=== PATIENT | female | born 1940 | race Caucasian/White ===

== ENCOUNTER 2020-05-01 23:08 | Inpatient (IN) | payer OTHER ==
[~2020-05-01] VITALS: Ht 167.6 cm; Wt 84.4 kg
[~2020-05-01 23:08] MED LIST: TRIA1CAP53 PO; [UNRECOGNIZED DRUG - CODE] PO
[2020-05-01 23:14] VITALS: BP_SYST 137
[2020-05-02] VITALS (7 sets, daily range): BP systolic 148–165
[2020-05-02 00:19] LABS: BASOPHILS # (AUTO) 0.1 K/uL (0.0-0.2); BASOPHILS % (AUTO) 0.7 % (0.0-2.0); EOSINOPHILS # (AUTO) 0.1 K/uL (0.0-0.4); EOSINOPHILS % (AUTO) 1.3 % (0.0-4.0); HEMATOCRIT 38.7 % (36-48); HEMOGLOBIN 12.7 g/dL (12.0-16.0); LYMPHOCYTES # (AUTO) 1.5 K/uL (1.0-5.5); MEAN CORPUSCULAR HEMOGLOBIN 31 pg (27-31); MEAN CORPUSCULAR HGB CONC 33 % (32-36); MEAN CORPUSCULAR VOLUME 93 fL (79.0-98.0); MONOCYTES # (AUTO) 0.7 K/uL (0.0-1.0); MONOCYTES % (AUTO) 7.6 % (1.7-9.3); NEUTROPHILS # (AUTO) 6.9 K/uL (1.8-7.7); NEUTROPHILS % (AUTO) 74.4 % (40.0-70.0); PLATELET COUNT (AUTO) 296 K/uL (130-430); RED BLOOD CELL COUNT(AUTO) 4.15 MIL/uL (4.2-6.2); RED CELL DISTRIBUTION WIDTH 14.1 % (9.0-15.0); WHITE BLOOD COUNT (AUTO) 9.2 K/uL (4.8-10.8)
[2020-05-02 00:32] LABS: ANION GAP 6 (5-15); CALCIUM 8.8 mg/dL (8.4-11.0); CHLORIDE 105 mmol/L (98-107); CREATININE 1.43 mg/dL (0.55-1.30); GLUCOSE 161 mg/dL (70-99); POTASSIUM 3.7 mmol/L (3.5-5.1); SODIUM SERUM 143 mmol/L (136-145); UREA NITROGEN, BLOOD 22 mg/dL (8-21)
[2020-05-02 00:39] LABS: BILIRUBIN,URINE NEGATIVE (NEGATIVE); BLOOD, URINE NEGATIVE (NEGATIVE); CLARITY/URINE CLEAR (CLEAR); COLOR,URINE YELLOW (YELLOW); GLUCOSE,URINE NEGATIVE (NEGATIVE); KETONES,URINE NEGATIVE (NEGATIVE); LEUKOCYTE ESTERASE ,URINE 2+ (NEGATIVE); NITRITE, URINE NEGATIVE (NEGATIVE); PROTEIN URINE TRACE (NEGATIVE); UROBILINOGEN,URINE 0.2 (0.2-1.0)
[2020-05-02 00:46] LABS: ALANINE AMINOTRANSFERASE 27 U/L (12-78); ALBUMIN 3.3 g/dL (3.4-4.8); ASPARTATE AMINOTRANSFERASE 22 U/L (10-37); TOTAL BILIRUBIN 0.5 mg/dL (0.0-1.0)
[2020-05-02 01:08] LABS: BACTERIA,URINE FEW /HPF (None Seen); RBC,URINE 0-3 /HPF (0-3)
[2020-05-02 01:09] LABS: HYALINE CASTS, URINE 0-10 /LPF (None Seen)
[2020-05-02] MEDS ORDERED: NACL 0.9% 1,000 ML IV SCH (02:15)
[2020-05-02] MEDS: NACL 0.9% 1,000 ML IV SCH ×2 (06:45→19:11)
[2020-05-02] MEDS ORDERED: LORazepam 2 MG/ML VIAL IVP PRN (06:45)
[2020-05-02] MEDS ORDERED: MORPHINE 2 MG/ML INJ. SYRINGE IVP PRN ×2 (06:45)
[2020-05-02] MEDS ORDERED: ONDANSETRON HCL 4 MG/2 ML VIAL IVP PRN (06:45)
[2020-05-02] MEDS ORDERED: POTASSIUM CHLORIDE 20 MEQ TAB.PRT.SR PO PRN (06:45)
[2020-05-02] MEDS ORDERED: ZOLPIDEM TARTRATE 5 MG TABLET PO PRN (06:45)
[2020-05-02] MEDS ORDERED: MUPIROCIN 2% TOPICAL OINTMENT 22 GM NS PRN (06:45)
[2020-05-02] MEDS ORDERED: DOCUSATE SODIUM 100 MG CAPSULE PO PRN (06:45)
[2020-05-02] MEDS ORDERED: TRIAMTERENE/HYDROCHLOROTHIAZID 1 CAP CAPSULE (DYAZIDE37.5/25) PO SCH (06:45)
[2020-05-02] MEDS ORDERED: ACETAMINOPHEN 325 MG TABLET PO PRN (06:45)
[2020-05-02] MEDS ORDERED: MAGNESIUM SULFATE 50 ML IV PRN (06:45)
[2020-05-02] MEDS: cefTRIAXone 1 GM in D5W 50 ML IV SCH (08:43)
[2020-05-02 08:52] LABS: ANION GAP 5 (5-15); CALCIUM 9.1 mg/dL (8.4-11.0); CHLORIDE 106 mmol/L (98-107); CREATININE 1.32 mg/dL (0.55-1.30); GLUCOSE 112 mg/dL (70-99); POTASSIUM 4.1 mmol/L (3.5-5.1); SODIUM SERUM 141 mmol/L (136-145); UREA NITROGEN, BLOOD 24 mg/dL (8-21)
[2020-05-02] MEDS: amLODIPine BESYLATE 10 MG TABLET PO SCH (10:08)
[2020-05-02] MEDS: HEPARIN SODIUM,PORCINE 5000 UNITS/ML VIAL SUBCUT SCH ×2 (10:08→21:14)
[2020-05-02] MEDS: PANTOPRAZOLE SODIUM 40 MG TAB PO SCH (10:09)
[2020-05-03 01:38] VITALS: BP_SYST 147
[2020-05-03 08:00] VITALS: BP_SYST 163
[2020-05-03] MEDS ORDERED: REGADENOSON 0.4 MG/5 ML SYRINGE IVP ONE (09:00)
[2020-05-03] MEDS: amLODIPine BESYLATE 10 MG TABLET PO SCH (09:24)
[2020-05-03] MEDS: PANTOPRAZOLE SODIUM 40 MG TAB PO SCH (09:26)
[2020-05-03] MEDS: HEPARIN SODIUM,PORCINE 5000 UNITS/ML VIAL SUBCUT SCH (09:26)
[2020-05-03] MEDS: cefTRIAXone 1 GM in D5W 50 ML IV SCH (09:26)
[2020-05-03] MEDS: NACL 0.9% 1,000 ML IV SCH (09:27)
[2020-05-03] MEDS ORDERED: PRO40 PO (11:04)
[2020-05-03 12:17] VITALS: BP_SYST 164
[2020-05-03 13:38] LABS: BASOPHILS # (AUTO) 0.1 K/uL (0.0-0.2); BASOPHILS % (AUTO) 0.8 % (0.0-2.0); EOSINOPHILS # (AUTO) 0.1 K/uL (0.0-0.4); EOSINOPHILS % (AUTO) 0.9 % (0.0-4.0); HEMATOCRIT 40.4 % (36-48); HEMOGLOBIN 13.1 g/dL (12.0-16.0); LYMPHOCYTES # (AUTO) 1.8 K/uL (1.0-5.5); LYMPHOCYTES % (AUTO) 14.9 % (20.5-51.5); MEAN CORPUSCULAR HEMOGLOBIN 30 pg (27-31); MEAN CORPUSCULAR HGB CONC 32 % (32-36); MEAN CORPUSCULAR VOLUME 94 fL (79.0-98.0); MONOCYTES # (AUTO) 0.8 K/uL (0.0-1.0); MONOCYTES % (AUTO) 6.9 % (1.7-9.3); NEUTROPHILS # (AUTO) 9.1 K/uL (1.8-7.7); NEUTROPHILS % (AUTO) 76.5 % (40.0-70.0); PLATELET COUNT (AUTO) 258 K/uL (130-430); RED BLOOD CELL COUNT(AUTO) 4.32 MIL/uL (4.2-6.2); RED CELL DISTRIBUTION WIDTH 14.3 % (9.0-15.0); WHITE BLOOD COUNT (AUTO) 11.9 K/uL (4.8-10.8)
[2020-05-03 13:39] LABS: ANION GAP 6 (5-15); CALCIUM 8.2 mg/dL (8.4-11.0); CHLORIDE 107 mmol/L (98-107); CREATININE 0.99 mg/dL (0.55-1.30); GLUCOSE 105 mg/dL (70-99); POTASSIUM 3.8 mmol/L (3.5-5.1); SODIUM SERUM 143 mmol/L (136-145); UREA NITROGEN, BLOOD 22 mg/dL (8-21)
[2020-05-03 16:02] VITALS: BP_SYST 145
== END 2020-05-03 16:30 | disposition home or self-care (01) | DRG 391 ==
LOC: SED 23:08 → STU 05-02 02:15
PROVIDERS: ADMIT General Practice; ATTEND General Practice
DX: K21.9 Gastro-esophageal reflux disease without esophagitis (principal); N17.0 Acute kidney failure with tubular necrosis; N39.0 Urinary tract infection, site not specified; I10 Essential (primary) hypertension; E66.9 Obesity, unspecified; I44.7 Left bundle-branch block, unspecified; Z68.30 Body mass index [BMI] 30.0-30.9, adult; Z79.899 Other long term (current) drug therapy
CPT/HCPCS: 36415; 71045; 80048; 80053; 81000-TC; 83036; 83735-TC; 83880; 84484; 85025; 87086; 93005; 93017; 93306; 99285; A9500; G0378; J0696; J1644; J2785; J7030; J7060

== ENCOUNTER 2020-05-18 07:09 | Emergency (ER) | payer OTHER ==
[~2020-05-18] VITALS: Ht 167.6 cm; Wt 92.5 kg
[~2020-05-18 07:09] MED LIST changes: +PRO40 PO
[2020-05-18 07:10] VITALS: BP_SYST 173
--- NOTE | 2020-05-18 07:10 | NUR ---
BROUGHT BACK TO BED #1 AND TRIAGED. REPORT GIVEN TO ROSALIA
--- NOTE | 2020-05-18 07:25 | NUR ---
Patient presented to ER C/O left hand pain. Patient ambulatory to ER, afebrile, left thumb slight swelling, left hand pain 6/10, denies N/V/D. Patient states left hand pain started last night,denies trauma or injury. Slight swelling to left thumb area & limited ROM due to pain.
--- NOTE | 2020-05-18 07:45 | NUR ---
ER Dr. Contreras at bedside examining patient.
--- NOTE | 2020-05-18 08:03 | NUR ---
XRAYS BEING DONE AT BEDSIDE. PT TOLERATING IT WELL.
[2020-05-18] MEDS ORDERED: ACETAMINOPHEN 325 MG TABLET PO ONE (09:15)
--- NOTE | 2020-05-18 09:40 | NUR ---
Splint placed to left hand as ordered.
--- NOTE | 2020-05-18 09:55 | NUR ---
Patient given written and verbal discharge instructions and verbalizes understanding. ER MD discussed with patient the results and treatment provided. Patient in stable condition. ID arm band removed. Rx of Tylenol given. Patient educated on pain management and to follow up with PMD. Pain Scale 2. Opportunity for questions provided and answered. Medication side effect fact sheet provided.
[2020-05-18 09:56] VITALS: BP_SYST 173
== END 2020-05-18 09:55 | disposition home or self-care (01) ==
LOC: SED 07:09
DX: M79.642 Pain in left hand (principal)
CPT/HCPCS: 99283

== ENCOUNTER 2022-04-19 12:26 | Emergency (ER) | payer OTHER ==
[~2022-04-19] VITALS: Ht 167.6 cm; Wt 98.0 kg
[2022-04-19 12:33] VITALS: BP_SYST 150
--- NOTE | 2022-04-19 12:46 | NUR ---
Patient to ER bed 6 to gown for evaluation. Side rails up. Report given to Mone.
--- NOTE | 2022-04-19 12:52 | NUR ---
ER at bedside examining patient.
--- NOTE | 2022-04-19 13:16 | NUR ---
81YO G BIB C/O BRIGHT RED BLOOD IN STOOL SINCE YESTERDAY. DENIES PAIN WHEN DEFECATING, DENIES URINARY PROBLEMS. DENIES ABDOMINAL PAIN. PT ADMITS TO BEING CONSTIPATED. IN ED, VSS. PT NOT IN DISTRESS. CLEAR BREATH SOUNDS. ABDOMEN SOFT, NONTENDER. ERMD MADE AWARE OF PT STATUS. PMH: HTN
[2022-04-19 13:21] LABS: BASOPHILS # (AUTO) 0.1 K/uL (0.0-0.2); BASOPHILS % (AUTO) 0.9 % (0.0-2.0); EOSINOPHILS % (AUTO) 0.4 % (0.0-4.0); HEMATOCRIT 40.3 % (36-48); HEMOGLOBIN 13.4 g/dL (12.0-16.0); LYMPHOCYTES # (AUTO) 1.2 K/uL (1.0-5.5); LYMPHOCYTES % (AUTO) 13.9 % (20.5-51.5); MEAN CORPUSCULAR HEMOGLOBIN 30 pg (27-31); MEAN CORPUSCULAR HGB CONC 33 % (32-36); MEAN CORPUSCULAR VOLUME 90 fL (79.0-98.0); MONOCYTES # (AUTO) 0.4 K/uL (0.0-1.0); MONOCYTES % (AUTO) 4.9 % (1.7-9.3); NEUTROPHILS # (AUTO) 7.1 K/uL (1.8-7.7); NEUTROPHILS % (AUTO) 79.9 % (40.0-70.0); PLATELET COUNT (AUTO) 251 K/uL (130-430); RED BLOOD CELL COUNT(AUTO) 4.49 MIL/uL (4.2-6.2); RED CELL DISTRIBUTION WIDTH 14.8 % (9.0-15.0); WHITE BLOOD COUNT (AUTO) 8.9 K/uL (4.8-10.8)
[2022-04-19 13:22] LABS: ANION GAP 6 (5-15); CALCIUM 8.9 mg/dL (8.4-11.0); CHLORIDE 102 mmol/L (98-107); CREATININE 1.12 mg/dL (0.55-1.30); GLUCOSE 105 mg/dL (70-99); POTASSIUM 3.8 mmol/L (3.5-5.1); SODIUM SERUM 138 mmol/L (136-145); UREA NITROGEN, BLOOD 21 mg/dL (8-21)
[2022-04-19 13:29] LABS: ALANINE AMINOTRANSFERASE 16 U/L (12-78); ALBUMIN 3.3 g/dL (3.4-4.8); AMYLASE 77 U/L (0-100); ASPARTATE AMINOTRANSFERASE 17 U/L (10-37); LIPASE 81 U/L (73-393); TOTAL BILIRUBIN 0.8 mg/dL (0.0-1.0)
[2022-04-19 14:23] VITALS: BP_SYST 150
--- NOTE | 2022-04-19 14:24 | NUR ---
Patient given written and verbal discharge instructions and verbalizes understanding. ER MD discussed with patient the results and treatment provided. Patient in stable condition. ID arm band removed. nO Rx given. Patient educated on pain management and to follow up with PMD. Pain Scale 0. Opportunity for questions provided and answered. Medication side effect fact sheet provided.
== END 2022-04-19 14:23 | disposition home or self-care (01) ==
LOC: SED 12:26
DX: K62.5 Hemorrhage of anus and rectum (principal); Z79.899 Other long term (current) drug therapy
CPT/HCPCS: 36415; 76376; 80053; 81002; 82150; 83605; 83690; 85025; 85610-TC; 85730-TC; 86886; 86900; 86901; 99284; 99285

== ENCOUNTER 2022-05-16 20:53 | Emergency (ER) | payer OTHER ==
[~2022-05-16] VITALS: Ht 167.6 cm; Wt 93.9 kg
--- NOTE | 2022-05-16 21:00 | NUR ---
Pt to ER w/ c/o difficulty swallowing and dyspnea. Pt denies new medications. Respirations unlabored with mild tachypnea. Ambulates with strong steady gait. Normal skin color for ethnicity. O2 saturation at 93% on Room air.
[2022-05-16 21:02] VITALS: BP_SYST 145
--- NOTE | 2022-05-16 22:08 | NUR ---
Patient to ER bed 7 to gown for evaluation. Side rails up. Report given to Gavin WAGONER(reg).
--- NOTE | 2022-05-16 23:19 | NUR ---
pt C/O difficulty swallowing Respitory system assessed Throat clear with no signs of obstruction Pt DC per MD DC instructions and medications given Pt verbalized understandings AOX4 VSS NAD at this time Pt exited ED in stable gait
[2022-05-16 23:21] VITALS: BP_SYST 130
== END 2022-05-16 23:18 | disposition home or self-care (01) ==
LOC: SED 20:53
DX: R13.10 Dysphagia, unspecified (principal); E78.00 Pure hypercholesterolemia, unspecified; I10 Essential (primary) hypertension; Z79.899 Other long term (current) drug therapy
CPT/HCPCS: 99281

== ENCOUNTER 2022-06-02 09:37 | Outpatient (CLI) | payer OTHER ==
[2022-06-02] MEDS ORDERED: BARIUM SULFATE 135 ML SUSP.RECON (E-Z-HD) PO ONE (10:32)
== END 2022-06-02 20:21 | disposition home or self-care (01) ==
LOC: SRD 09:37
PROVIDERS: ATTEND Otolaryngology
DX: K44.9 Diaphragmatic hernia without obstruction or gangrene (principal); R13.10 Dysphagia, unspecified
CPT/HCPCS: 74220-TC

== ENCOUNTER 2022-08-22 17:21 | Emergency (ER) | payer OTHER ==
[~2022-08-22] VITALS: Ht 167.6 cm; Wt 93.4 kg
[2022-08-22 17:57] VITALS: BP_SYST 129
--- NOTE | 2022-08-22 21:30 | NUR ---
PT SEEN AND EXAMINE BY DR. VAN
--- NOTE | 2022-08-22 21:51 | NUR ---
Patient given written and verbal discharge instructions and verbalizes understanding. ER MD discussed with patient the results and treatment provided. Patient in stable condition. ID arm band removed. NO Rx of given. Patient educated on pain management and to follow up with PMD. Pain Scale 3/10. Opportunity for questions provided and answered. Medication side effect fact sheet provided.
[2022-08-22 21:53] VITALS: BP_SYST 126
== END 2022-08-22 21:53 | disposition home or self-care (01) ==
LOC: SED 17:21
DX: S63.501A Unspecified sprain of right wrist, initial encounter (principal); I10 Essential (primary) hypertension; Z88.5 Allergy status to narcotic agent; Z79.899 Other long term (current) drug therapy; X50.9XXA Other and unspecified overexertion or strenuous movements or postures, initial encounter; Y93.89 Activity, other specified; Y92.89 Other specified places as the place of occurrence of the external cause; Y99.8 Other external cause status
CPT/HCPCS: 99283

== ENCOUNTER 2022-12-08 10:37 | Inpatient (IN) | payer OTHER ==
[~2022-12-08] VITALS: Ht 160 cm; Wt 93.5 kg
[2022-12-08 10:43] VITALS: BP_SYST 154
[2022-12-08] MEDS ORDERED: ALBUTEROL SULFATE 0.083% 2.5 MG/3 ML VIAL.NEB INH ONE ×2 (10:53→11:00)
[2022-12-08] MEDS ORDERED: IPRATROPIUM BROM 0.5 MG/2.5 ML VIAL.NEB (ATROVENT) INH ONE ×2 (10:53→11:00)
[2022-12-08] MEDS ORDERED: VERA120C2 PO (12:13)
[2022-12-08] MEDS ORDERED: FAMO40TA7 PO (12:13)
[2022-12-08] MEDS ORDERED: LOSA25TA3 PO (12:13)
[2022-12-08] MEDS ORDERED: SIMV40TA2 PO (12:13)
[2022-12-08 12:16] LABS: BASOPHILS % (AUTO) 0.3 % (0.0-2.0); EOSINOPHILS % (AUTO) 0.3 % (0.0-4.0); HEMATOCRIT 39.9 % (36-48); HEMOGLOBIN 13.3 g/dL (12.0-16.0); LYMPHOCYTES # (AUTO) 1.7 K/uL (1.0-5.5); LYMPHOCYTES % (AUTO) 21.5 % (20.5-51.5); MEAN CORPUSCULAR HEMOGLOBIN 31 pg (27-31); MEAN CORPUSCULAR HGB CONC 33 % (32-36); MEAN CORPUSCULAR VOLUME 92 fL (79.0-98.0); MONOCYTES % (AUTO) 13.1 % (1.7-9.3); NEUTROPHILS # (AUTO) 5.1 K/uL (1.8-7.7); NEUTROPHILS % (AUTO) 64.8 % (40.0-70.0); PLATELET COUNT (AUTO) 209 K/uL (130-430); RED BLOOD CELL COUNT(AUTO) 4.35 MIL/uL (4.2-6.2); RED CELL DISTRIBUTION WIDTH 14.5 % (9.0-15.0); WHITE BLOOD COUNT (AUTO) 7.9 K/uL (4.8-10.8)
[2022-12-08 12:21] LABS: ANION GAP 4 (5-15); CALCIUM 9.1 mg/dL (8.4-11.0); CHLORIDE 98 mmol/L (98-107); CREATININE 1.24 mg/dL (0.55-1.30); GLUCOSE 106 mg/dL (70-99); UREA NITROGEN, BLOOD 21 mg/dL (8-21)
[2022-12-08 12:27] LABS: PROTHROMBIN TIME 9.9 SECS (9.5-12.5)
[2022-12-08 12:28] LABS: ALANINE AMINOTRANSFERASE 20 U/L (12-78); ALBUMIN 3.3 g/dL (3.4-4.8); ASPARTATE AMINOTRANSFERASE 25 U/L (10-37); TOTAL BILIRUBIN 0.8 mg/dL (0.0-1.0)
[2022-12-08] MEDS ORDERED: ONDANSETRON HCL 4 MG/2 ML VIAL IVP PRN (13:45)
[2022-12-08] MEDS ORDERED: MAGNESIUM SULFATE 50 ML IV PRN (13:45)
[2022-12-08] MEDS ORDERED: POTASSIUM CHLORIDE 20 MEQ TAB.PRT.SR PO PRN (13:45)
[2022-12-08] MEDS ORDERED: ZOLPIDEM TARTRATE 5 MG TABLET PO PRN (13:45)
[2022-12-08] MEDS ORDERED: ACETAMINOPHEN 325 MG TABLET PO PRN ×2 (13:45→16:15)
[2022-12-08] MEDS ORDERED: LORazepam 2 MG/ML VIAL IVP PRN (13:45)
[2022-12-08] MEDS ORDERED: IPRATROPIUM/ALBUTEROL SULFATE 3 ML AMPUL.NEB (DUONEB) INH PRN (13:45)
[2022-12-08] MEDS ORDERED: MUPIROCIN 2% TOPICAL OINTMENT 22 GM NS PRN (13:45)
[2022-12-08] MEDS ORDERED: AZITHROMYCIN 250 MG TABLET PO ONE (13:45)
[2022-12-08] MEDS ORDERED: DOCUSATE SODIUM 100 MG CAPSULE PO PRN (13:45)
[2022-12-08] MEDS ORDERED: AZITHROMYCIN 250 MG TABLET ONE (16:32)
[2022-12-08 20:30] VITALS: BP_SYST 148
[2022-12-08 20:38] VITALS: BP_SYST 148
[2022-12-08] MEDS: SIMVASTATIN 40 MG TABLET PO SCH (21:27)
[2022-12-09 00:56] VITALS: BP_SYST 167
[2022-12-09] MEDS ORDERED: METOPROLOL TARTRATE 50 MG TABLET PO ONE (01:15)
[2022-12-09 06:08] LABS: BASOPHILS % (AUTO) 0.5 % (0.0-2.0); EOSINOPHILS % (AUTO) 0.8 % (0.0-4.0); HEMOGLOBIN 12.6 g/dL (12.0-16.0); LYMPHOCYTES # (AUTO) 0.9 K/uL (1.0-5.5); LYMPHOCYTES % (AUTO) 15.4 % (20.5-51.5); MEAN CORPUSCULAR HEMOGLOBIN 31 pg (27-31); MEAN CORPUSCULAR HGB CONC 34 % (32-36); MEAN CORPUSCULAR VOLUME 92 fL (79.0-98.0); MONOCYTES # (AUTO) 0.9 K/uL (0.0-1.0); MONOCYTES % (AUTO) 15.8 % (1.7-9.3); NEUTROPHILS # (AUTO) 3.9 K/uL (1.8-7.7); NEUTROPHILS % (AUTO) 67.5 % (40.0-70.0); PLATELET COUNT (AUTO) 172 K/uL (130-430); RED BLOOD CELL COUNT(AUTO) 4.04 MIL/uL (4.2-6.2); WHITE BLOOD COUNT (AUTO) 5.8 K/uL (4.8-10.8)
[2022-12-09 06:42] LABS: ANION GAP 5 (5-15); CALCIUM 8.7 mg/dL (8.4-11.0); CHLORIDE 100 mmol/L (98-107); GLUCOSE 94 mg/dL (70-99); UREA NITROGEN, BLOOD 20 mg/dL (8-21)
[2022-12-09 08:25] VITALS: BP_SYST 132
[2022-12-09] MEDS ORDERED: cefTRIAXone 1 GM in D5W 50 ML IV SCH (09:00)
[2022-12-09] MEDS: AZITHROMYCIN 250 MG TABLET PO SCH (10:02)
[2022-12-09] MEDS: LOSARTAN POTASSIUM 25 MG TABLET PO SCH (10:02)
[2022-12-09] MEDS: METOPROLOL TARTRATE 50 MG TABLET PO SCH (10:03)
[2022-12-09] MEDS: FUROSEMIDE 20 MG/2 ML VIAL IVP SCH (10:03)
[2022-12-09] MEDS: ENOXAPARIN SODIUM 30 MG/0.3 ML SYRINGE SUBCUT SCH (10:05)
[2022-12-09 11:31] VITALS: BP_SYST 110
[2022-12-09] MEDS: CEFTRIAXONE SOD 1 GM/ D5W 50 ML IV SCH ×2 (13:41)
[2022-12-09 15:24] VITALS: BP_SYST 106
[2022-12-09 20:00] VITALS: BP_SYST 141
[2022-12-09] MEDS: SIMVASTATIN 40 MG TABLET PO SCH (22:12)
[2022-12-10 00:40] VITALS: BP_SYST 130
[2022-12-10 07:03] LABS: BASOPHILS % (AUTO) 0.4 % (0.0-2.0); EOSINOPHILS # (AUTO) 0.2 K/uL (0.0-0.4); EOSINOPHILS % (AUTO) 3.5 % (0.0-4.0); HEMATOCRIT 36.9 % (36-48); HEMOGLOBIN 12.5 g/dL (12.0-16.0); LYMPHOCYTES # (AUTO) 1.5 K/uL (1.0-5.5); LYMPHOCYTES % (AUTO) 30.7 % (20.5-51.5); MEAN CORPUSCULAR HEMOGLOBIN 31 pg (27-31); MEAN CORPUSCULAR HGB CONC 34 % (32-36); MEAN CORPUSCULAR VOLUME 91 fL (79.0-98.0); MONOCYTES # (AUTO) 0.8 K/uL (0.0-1.0); MONOCYTES % (AUTO) 15.9 % (1.7-9.3); NEUTROPHILS # (AUTO) 2.4 K/uL (1.8-7.7); NEUTROPHILS % (AUTO) 49.5 % (40.0-70.0); PLATELET COUNT (AUTO) 176 K/uL (130-430); RED BLOOD CELL COUNT(AUTO) 4.04 MIL/uL (4.2-6.2); RED CELL DISTRIBUTION WIDTH 14.2 % (9.0-15.0); WHITE BLOOD COUNT (AUTO) 4.8 K/uL (4.8-10.8)
[2022-12-10 07:30] VITALS: BP_SYST 129
[2022-12-10 07:45] LABS: ANION GAP 10 (5-15); CALCIUM 8.4 mg/dL (8.4-11.0); CHLORIDE 101 mmol/L (98-107); CREATININE 1.13 mg/dL (0.55-1.30); GLUCOSE 91 mg/dL (70-99); UREA NITROGEN, BLOOD 29 mg/dL (8-21)
[2022-12-10] MEDS ORDERED: PRED10TA PO (09:38)
[2022-12-10] MEDS ORDERED: FLUT1DIS3 IH (09:38)
[2022-12-10] MEDS ORDERED: ZIT250 PO (09:38)
[2022-12-10] MEDS: ENOXAPARIN SODIUM 30 MG/0.3 ML SYRINGE SUBCUT SCH (09:49)
[2022-12-10] MEDS: AZITHROMYCIN 250 MG TABLET PO SCH (09:51)
[2022-12-10] MEDS: METOPROLOL TARTRATE 50 MG TABLET PO SCH (09:52)
[2022-12-10] MEDS: LOSARTAN POTASSIUM 25 MG TABLET PO SCH (09:53)
[2022-12-10] MEDS: FUROSEMIDE 20 MG/2 ML VIAL IVP SCH (09:54)
[2022-12-10 11:29] VITALS: BP_SYST 117
[2022-12-10] MEDS: CEFTRIAXONE SOD 1 GM/ D5W 50 ML IV SCH ×2 (14:23)
[2022-12-10 15:17] VITALS: BP_SYST 107
[2022-12-10 15:31] VITALS: BP_SYST 107
== END 2022-12-10 16:45 | disposition home health service (06) | DRG 291 ==
LOC: SED 10:37 → STU 13:58
PROVIDERS: ADMIT General Practice; ATTEND General Practice
DX: I11.0 Hypertensive heart disease with heart failure (principal); I50.43 Acute on chronic combined systolic (congestive) and diastolic (congestive) heart failure; J18.9 Pneumonia, unspecified organism; E87.1 Hypo-osmolality and hyponatremia; E44.1 Mild protein-calorie malnutrition; J44.9 Chronic obstructive pulmonary disease, unspecified; F03.90 Unspecified dementia, unspecified severity, without behavioral disturbance, psychotic disturbance, mood disturbance, and anxiety; E87.6 Hypokalemia; Z20.822 Contact with and (suspected) exposure to COVID-19; E78.00 Pure hypercholesterolemia, unspecified; Z88.6 Allergy status to analgesic agent; Z79.899 Other long term (current) drug therapy; Z87.891 Personal history of nicotine dependence; Z68.36 Body mass index [BMI] 36.0-36.9, adult
CPT/HCPCS: 36415; 71045; 80048; 80053; 82550; 83036; 83605; 83735; 83880; 84484; 85025; 85610-TC; 85730-TC; 93005; 93306; 94640; 99285; G0378; J0696; J1650; J1940; J7060; J7613; Q0144